=== PATIENT | female | born 1980 ===

== ENCOUNTER → 2017-06-29 | Outpatient (CLI) | payer BC ==
[2017-06-29 12:42] LABS: HEMATOCRIT 38.4 % (36.0-47.0); MEAN CORPUSCULAR HEMOGLOBIN 31.4 pg (27.0-33.0); MEAN CORPUSCULAR HGB CONC 33.9 g/dl (32.0-36.5); MEAN CORPUSCULAR VOLUME 92.8 fl (80.0-96.0); PLATELET COUNT, AUTOMATED 196 10^3/uL (150-450); RED BLOOD COUNT 4.14 10^6/uL (4.00-5.40); RED CELL DISTRIBUTION WIDTH 13.2 % (11.5-14.5); WHITE BLOOD COUNT 10.1 10^3/uL (4.0-10.0)
[2017-06-29 13:22] LABS: GLUCOSE CHALLENGE TEST 1 HOUR 104 MG/DL (LESS THAN 140)
== END ==
LOC: M WUC 08:54
DX: Z34.82 Encounter for supervision of other normal pregnancy, second trimester (principal)
CPT/HCPCS: 82950

== ENCOUNTER → 2017-08-20 | Outpatient (REF) | payer BC | LOC: M LAB REF 16:42 | DX: Z34.83 Encounter for supervision of other normal pregnancy, third trimester (principal) | CPT/HCPCS: 87081 ==

== ENCOUNTER 2017-09-16 15:29 | Inpatient (IN) | payer BC ==
[2017-09-16 22:20] LABS: CORD GAS PCO2 A 39.3 mmHg; CORD GAS PH A 7.377 UNITS; CORD GAS PO2 A 18.7 mmHg; CORD GAS TCO2 A 23.8 MEQ/L
[2017-09-16 22:21] LABS: CORD GAS ABE A -2.3; CORD GAS HCO3 A 22.6 MEQ/L; CORD GAS O2 SAT A 40.7 %; CORD GAS SBC A 21.1 MEQ/L
[2017-09-16 22:26] LABS: CORD GAS PH V 7.505 UNITS
[2017-09-16 22:27] LABS: CORD GAS PCO2 V 24.4 mmHg; CORD GAS PO2 V 36.4 mmHg; CORD GAS TCO2 V 19.6 MEQ/L
[2017-09-16 22:28] LABS: CORD GAS ABE V -2.1; CORD GAS HCO3 V 18.8 MEQ/L; CORD GAS O2 SAT V 84.5 %; CORD GAS SBC V 22.4 MEQ/L
[2017-09-17] MEDS ORDERED: DOCUSATE SODIUM 100 MG CAP PO (01:00)
[2017-09-17] MEDS ORDERED: MOM 30ML SUSPENSION UDC PO (01:00)
[2017-09-17 01:12] LABS: HEMATOCRIT 39.2 % (36.0-47.0); HEMOGLOBIN 13.8 g/dl (12.0-15.5); MEAN CORPUSCULAR HEMOGLOBIN 31.9 pg (27.0-33.0); MEAN CORPUSCULAR HGB CONC 35.2 g/dl (32.0-36.5); MEAN CORPUSCULAR VOLUME 90.5 fl (80.0-96.0); PLATELET COUNT, AUTOMATED 163 10^3/uL (150-450); RED BLOOD COUNT 4.33 10^6/uL (4.00-5.40); RED CELL DISTRIBUTION WIDTH 13.2 % (11.5-14.5); WHITE BLOOD COUNT 14.1 10^3/uL (4.0-10.0)
[2017-09-17] MEDS ORDERED: METHYLERGONOVINE MALEATE 0.2 MG TAB PO (01:15)
[2017-09-17] MEDS ORDERED: ACETAMINOPHEN 500 MG TAB PO (01:15)
[2017-09-17] MEDS ORDERED: IBUPROFEN 800 MG TAB PO (01:15)
[2017-09-17] MEDS ORDERED: RHOGAM 300 MCG (1500 IU) INJ (J2790) IM (01:15)
[2017-09-17] MEDS ORDERED: MEASLES,MUMPS,RUBELLA VACCINE INJ (MMR-II) (90707) SQ (01:15)
== END 2017-09-18 11:20 | disposition home or self-care (01) | DRG 540 ==
LOC: M LDI 15:29 → M OBS 22:25
PROVIDERS: Obstetrics & Gynecology
PROC: 10D00Z1 Extraction of Products of Conception, Low, Open Approach (ICD-10-PCS; principal; 2017-09-16)
DX: O99.284 Endocrine, nutritional and metabolic diseases complicating childbirth (principal); Z3A.39 39 weeks gestation of pregnancy; Z37.0 Single live birth; E03.9 Hypothyroidism, unspecified

== ENCOUNTER → 2019-07-22 | Outpatient (REF) | payer OTHER ==
[~2019-07-22] MED LIST: IBUP-1114 PO; LEVO125T4 PO; MAPA500T2 PO; PRENTAB55 PO
== END ==
LOC: M SFHCADAM 13:37
PROVIDERS: ATTEND Physician Assistant Medical
DX: Z53.9 Procedure and treatment not carried out, unspecified reason (principal)

== ENCOUNTER → 2019-07-23 | Outpatient (CLI) | payer OTHER ==
[2019-07-23 17:32] LABS: ALBUMIN 3.7 GM/DL (3.2-5.2); ALT/SGPT 15 U/L (12-78); BILIRUBIN,TOTAL 0.8 MG/DL (0.2-1.0); BLOOD UREA NITROGEN 12 MG/DL (7-18); CALCIUM LEVEL 8.9 MG/DL (8.5-10.1); CARBON DIOXIDE LEVEL 29 MEQ/L (21-32); CHLORIDE LEVEL 106 MEQ/L (98-107); CHOLESTEROL LEVEL 211 MG/DL (<200); CHOLESTEROL RISK RATIO 4.688 (<5); CREATININE FOR GFR 0.91 MG/DL (0.55-1.30); FREE T4 1.27 NG/DL (0.76-1.46); GLOMERULAR FILTRATION RATE > 60.0 (>60); GLUCOSE, FASTING 86 MG/DL (70-100); HDL CHOLESTEROL 45 MG/DL (>40); LDL CHOLESTEROL 135 MG/DL (<100); NON-HDL-C 166 MG/DL; POTASSIUM SERUM 4.2 MEQ/L (3.5-5.1); SODIUM LEVEL 138 MEQ/L (136-145); THYROID STIMULATING HORMONE 0.625 uIU/ML (0.358-3.740); TOTAL PROTEIN 6.9 GM/DL (6.4-8.2); TRIGLYCERIDES LEVEL 156 MG/DL (<150)
== END ==
LOC: M ADAMS 12:07
PROVIDERS: ATTEND Physician Assistant Medical
DX: Z13.220 Encounter for screening for lipoid disorders (principal); E03.9 Hypothyroidism, unspecified; Z13.0 Encounter for screening for diseases of the blood and blood-forming organs and certain disorders involving the immune mechanism